=== PATIENT | female | born 1995 | race Caucasian/White ===

== ENCOUNTER 2016-09-14 10:27 | Day surgery (SDC) | payer OTHER ==
[~2016-09-14] VITALS: Ht 162.6 cm; Wt 75.0 kg
[2016-09-14] MEDS ORDERED: LACTATED RINGERS 1,000 ML IV SCH (10:51)
[2016-09-14] MEDS ORDERED: LIDOCAINE 1%, 2ML ONE (11:10)
[2016-09-14 11:14] VITALS: BP 132/83
[2016-09-14 11:15] LABS: HCG UR OBC PASS
[2016-09-14] MEDS ORDERED: CELE200C PO (11:21)
[2016-09-14] MEDS ORDERED: BUPR100T11 PO (11:21)
[2016-09-14] MEDS ORDERED: LIDOCAINE 1%, 2ML SQ PRN (11:30)
[2016-09-14] MEDS ORDERED: PROPOFOL 10 MG/ML, 50ML ONE (12:21)
[2016-09-14] MEDS ORDERED: PROPOFOL 10 MG/ML, 20ML ONE (12:21)
== END 2016-09-14 14:05 | disposition home or self-care (01) ==
LOC: OUT 10:27
PROVIDERS: ATTEND Internal Medicine Gastroenterology
DX: D13.2 Benign neoplasm of duodenum (principal); K31.7 Polyp of stomach and duodenum; Z83.79 Family history of other diseases of the digestive system
CPT/HCPCS: 43239; 81025; 88305; J2704; J3490; J7120